=== PATIENT | male | born 1965 | race Caucasian/White ===

== ENCOUNTER → 2017-02-27 | Outpatient (CLI) | payer OTHER ==
[~2017-02-27] VITALS: Ht 177.8 cm; Wt 123.3 kg
[~2017-02-27] MED LIST: ALLOPURINOL300 MG PO; ASPIRIN81 M2 PO; LISINOPRIL-HCT1 EAC3 PO; NORVASC10 MG PO; TRANSDERM-SCOP1 EACH TD
== END | disposition home or self-care (01) ==
LOC: AMB 08:45
DX: Z12.11 Encounter for screening for malignant neoplasm of colon (principal); D12.5 Benign neoplasm of sigmoid colon; K63.5 Polyp of colon; I10 Essential (primary) hypertension; E66.9 Obesity, unspecified; G47.33 Obstructive sleep apnea (adult) (pediatric); M10.00 Idiopathic gout, unspecified site; Z79.82 Long term (current) use of aspirin; Z68.39 Body mass index [BMI] 39.0-39.9, adult; Z87.891 Personal history of nicotine dependence; Z82.0 Family history of epilepsy and other diseases of the nervous system; Z82.49 Family history of ischemic heart disease and other diseases of the circulatory system
CPT/HCPCS: 88305; 93005; J2250; J3010

== ENCOUNTER → 2017-09-28 | Outpatient (CLI) | payer OTHER | END | disposition home or self-care (01) | LOC: CDC 14:06 | DX: Z01.810 Encounter for preprocedural cardiovascular examination (principal); G56.21 Lesion of ulnar nerve, right upper limb; M79.621 Pain in right upper arm; R94.31 Abnormal electrocardiogram [ECG] [EKG] | CPT/HCPCS: 93000 ==